=== PATIENT | female | born 1965 | race Caucasian/White ===

== ENCOUNTER 2021-01-20 08:35 | Day surgery (SDC) | payer MEDICAID ==
[~2021-01-20] VITALS: Ht 160 cm; Wt 69.5 kg
[~2021-01-20 08:35] MED LIST: SODIUM CHLORIDE 0.9% 1,000 ML IV ONE; SODIUM CHLORIDE 0.9% 1,000 ML ONE
[2021-01-20] MEDS ORDERED: LIDOCAINE/PF 2% 5 ML VIAL IM ONE (08:36)
[2021-01-20] MEDS ORDERED: PROPOFOL 1% 20 ML VIAL IVP ONE (08:36)
[2021-01-20 09:53] LABS: COVID AG,FIA SOURCE NASOPHARYNGEAL
== END 2021-01-20 12:35 | disposition home or self-care (01) ==
LOC: SURGERY 08:35
PROVIDERS: ATTEND Internal Medicine Gastroenterology
DX: K21.9 Gastro-esophageal reflux disease without esophagitis (principal); K29.50 Unspecified chronic gastritis without bleeding; E66.3 Overweight; Z98.890 Other specified postprocedural states; Z90.49 Acquired absence of other specified parts of digestive tract; Z79.899 Other long term (current) drug therapy
CPT/HCPCS: 43239; 87426; 88305; 88312; 88313; C1769; C9803; J2704; J3490; J7030